=== PATIENT | female | born 1935 | race Caucasian/White ===

== ENCOUNTER 2019-04-29 10:52 | Day surgery (SDC) | payer MEDICARE ==
[2019-04-29] MEDS ORDERED: Xylocaine-Mpf 2% 5 Ml Vial IJ ONE (10:53)
[2019-04-29] MEDS ORDERED: Decadron 4 MG INJ IV ONE (10:53)
[2019-04-29] MEDS ORDERED: DIPRIVAN 200 MG/20 ML IV ONE (12:36)
[2019-04-29] MEDS ORDERED: Ketamine HCl 50 MG/ML ONE (12:36)
[2019-04-29] MEDS ORDERED: Ephedrine Sulfate 50 MG/ML ONE (13:04)
[2019-04-29] MEDS ORDERED: Lactated Ringers 1,000 ML IV ONE (14:04)
--- NOTE | 2019-04-29 14:19 | XRAY ---
Indication: C3-C5 MBB. Intraoperative fluoroscopy was provided for 34 seconds. Single digital spot image submitted for interpretation demonstrates posterior needle tips projecting over the expected course of the right C3-C5 nerve roots. Correlate with intraoperative findings/report.
--- NOTE | 2019-04-29 16:43 | XRAY ---
34 seconds fluoroscopy time in surgery for C3-C5 MBB.
== END 2019-04-29 13:15 | disposition home or self-care (01) ==
LOC: SDC-PAIN 10:52
PROVIDERS: ATTEND Psychiatry & Neurology Pain Medicine
DX: M47.812 Spondylosis without myelopathy or radiculopathy, cervical region (principal); J44.9 Chronic obstructive pulmonary disease, unspecified; G47.30 Sleep apnea, unspecified; E78.5 Hyperlipidemia, unspecified; Z85.118 Personal history of other malignant neoplasm of bronchus and lung; Z86.73 Personal history of transient ischemic attack (TIA), and cerebral infarction without residual deficits; Z79.899 Other long term (current) drug therapy
CPT/HCPCS: 64490; 64495; 72020; 77002; J1100; J2704

== ENCOUNTER 2019-05-27 12:13 | Day surgery (SDC) | payer MEDICARE ==
[2019-05-27] MEDS ORDERED: Decadron 4 MG INJ IV ONE (12:14)
[2019-05-27] MEDS ORDERED: Xylocaine-Mpf 2% 5 Ml Vial IJ ONE (12:14)
[2019-05-27] MEDS ORDERED: Xylocaine 1% Vial 30 ML PF IJ ONE (12:14)
[2019-05-27] MEDS ORDERED: Lactated Ringers 1,000 ML IV ONE (13:44)
--- NOTE | 2019-05-27 14:06 | XRAY ---
Indication: Right C2-C4 MBB. Intraoperative fluoroscopy was provided for 55 seconds. 2 digital spot images submitted for interpretation demonstrates posterior needle tips projecting over the expected course of the right C2-C4 nerve roots. Correlate with intraoperative findings/report.
--- NOTE | 2019-05-27 15:11 | XRAY ---
55 seconds fluoroscopy time in surgery for right C2-C4 MBB.
== END 2019-05-27 14:01 | disposition home or self-care (01) ==
LOC: SDC-PAIN 12:13
PROVIDERS: ATTEND Psychiatry & Neurology Pain Medicine
DX: M47.812 Spondylosis without myelopathy or radiculopathy, cervical region (principal); J44.9 Chronic obstructive pulmonary disease, unspecified; G47.30 Sleep apnea, unspecified; E78.5 Hyperlipidemia, unspecified; Z86.73 Personal history of transient ischemic attack (TIA), and cerebral infarction without residual deficits; F41.8 Other specified anxiety disorders; Z79.899 Other long term (current) drug therapy
CPT/HCPCS: 64490; 64491; 72020; 77002; J1100; J2001

== ENCOUNTER 2019-12-30 09:38 | Day surgery (SDC) | payer MEDICARE ==
[~2019-12-30 09:38] MED LIST: DIPRIVAN 200 MG/20 ML IV ONE; Ketamine HCl 50 MG/ML ONE
[2019-12-30] MEDS ORDERED: Decadron 4 MG INJ IV ONE (09:39)
[2019-12-30] MEDS ORDERED: BUPIVACAINE 0.5% VIAL IJ ONE (09:39)
--- NOTE | 2019-12-30 12:08 | XRAY ---
Indication: Right C2-C4 MBB. Intraoperative fluoroscopy was provided for 35 seconds. 3 digital spot images submitted for interpretation demonstrates posterior needle tips projecting over the expected right C2-C4 nerve roots. Correlate with intraoperative findings/report.
[2019-12-30] MEDS ORDERED: Lactated Ringers 1,000 ML IV ONE (13:48)
--- NOTE | 2019-12-30 16:55 | XRAY ---
35 seconds of fluoroscopy was used in surgery for a right C2-C3, C3-C4 MBB.
== END 2019-12-30 11:41 | disposition home or self-care (01) ==
LOC: SDC-PAIN 09:38
PROVIDERS: ATTEND Psychiatry & Neurology Pain Medicine
DX: M47.812 Spondylosis without myelopathy or radiculopathy, cervical region (principal); J44.9 Chronic obstructive pulmonary disease, unspecified; G47.30 Sleep apnea, unspecified; E78.5 Hyperlipidemia, unspecified; Z86.73 Personal history of transient ischemic attack (TIA), and cerebral infarction without residual deficits; Z85.118 Personal history of other malignant neoplasm of bronchus and lung; Z79.899 Other long term (current) drug therapy; Z95.0 Presence of cardiac pacemaker
CPT/HCPCS: 64490; 64491; 72020; 77002; 99100; J1100; J2704

== ENCOUNTER 2020-02-10 10:45 | Day surgery (SDC) | payer MEDICARE ==
[2020-02-10] MEDS ORDERED: BUPIVACAINE 0.5% VIAL IJ ONE (10:46)
[2020-02-10] MEDS ORDERED: Decadron 4 MG INJ IV ONE (10:46)
[2020-02-10] MEDS ORDERED: Ketamine HCl 50 MG/ML ONE (13:09)
[2020-02-10] MEDS ORDERED: DIPRIVAN 200 MG/20 ML IV ONE (13:09)
--- NOTE | 2020-02-10 14:31 | XRAY ---
Indication: Right C2-C4 MBB. Intraoperative fluoroscopy was provided for 56 seconds. 2 digital spot images submitted for interpretation demonstrates posterior needle tips projecting over the expected right C2-C4 nerve roots. Correlate with intraoperative findings/report.
--- NOTE | 2020-02-10 15:12 | XRAY ---
56 seconds fluoroscopy time in surgery for right C2-C4 MBB.
[2020-02-10] MEDS ORDERED: Lactated Ringers 1,000 ML IV ONE (16:07)
== END 2020-02-10 14:00 | disposition home or self-care (01) ==
LOC: SDC-PAIN 10:45
PROVIDERS: ATTEND Psychiatry & Neurology Pain Medicine
DX: M47.812 Spondylosis without myelopathy or radiculopathy, cervical region (principal); J44.9 Chronic obstructive pulmonary disease, unspecified; Z86.73 Personal history of transient ischemic attack (TIA), and cerebral infarction without residual deficits; G47.30 Sleep apnea, unspecified; E78.5 Hyperlipidemia, unspecified; C34.90 Malignant neoplasm of unspecified part of unspecified bronchus or lung; Z95.0 Presence of cardiac pacemaker; Z79.899 Other long term (current) drug therapy
CPT/HCPCS: 64490; 64491; 72020; 77002; J1100; J2704